=== PATIENT | female | born 1985 | race Caucasian/White ===

== ENCOUNTER 2016-07-16 06:25 | Inpatient (IN) ==
[2016-07-16] MEDS ORDERED: CITRIC ACID/SODIUM CITRATE 30 ML UDCUP PO ONE (06:33)
[2016-07-16] MEDS ORDERED: CLINDAMYCIN INJ 900 MG in PREMIX 1 EACH IV ONE (06:33)
[2016-07-16] MEDS ORDERED: FAMOTIDINE 20 MG/2 ML VIAL IV ONE (06:33)
[2016-07-16 07:00] LABS: Basophils # 0.1 10*3/uL (0.0-0.2); Basophils % 0.7 % (0.0-0.8); Eosinophils # 0.2 10*3/uL (0.0-0.87); Eosinophils % 2.6 % (0.00-10.9); Hematocrit 37.8 VOL% (35.7-47.0); Hemoglobin 12.3 GM/DL (12.0-16.0); Immature Granulocytes % 1.3 %; Immature Granulocytes Absolute 0.11 #; Lymphocytes # 1.9 10*3/uL (1.4-4.0); Lymphocytes % 22.1 % (21.3-54.2); Mean Corpuscular HGB Conc 32.5 GM/DL (32-36); Mean Corpuscular Hemoglobin 29 PG (27-34); Mean Corpuscular Volume 88.1 FL (87-102); Mean Platelet Volume 13.1 FL (9.6-12.0); Monocytes # 0.6 10*3/uL (0.11-0.8); Monocytes % 6.8 % (1.7-12.7); Neutrophils # 5.7 10*3/uL (1.4-7.4); Neutrophils % 66.5 % (38.7-73.9); Platelet Count 129 10*3/uL (130-400); Red Blood Count 4.29 10*6/uL (3.8-5.5); Red Cell Distribution Width 15.1 % (9.3-17.3); White Blood Count 8.6 10*3/uL (4.5-13.71)
[2016-07-16] MEDS: LACTATED RINGERS 1,000 ML IV SCH ×2 (07:00→08:01)
[2016-07-16] MEDS ORDERED: OXYTOCIN/LR 20 UNIT/1,000 ML BAG IV ONE ×3 (07:05→10:04)
[2016-07-16] MEDS ORDERED: INFLUENZA VIRUS VACCINE 0.5 ML SYRINGE IM ONE (07:08)
[2016-07-16 07:34] LABS: Albumin 2.8 G/DL (3.4-5.0); Bilirubin,Total 0.4 MG/DL (0.2-1.0); Calcium 8.7 MG/DL (8.5-10.1); Osmolality,Calculated 280.1 MOS/KG (273-304); Potassium 4.1 MMOL/L (3.5-5.1)
[2016-07-16] MEDS ORDERED: ONDANSETRON 4 MG/2 ML VIAL ONE (07:40)
[2016-07-16] MEDS ORDERED: PHENYLEPHRINE 1 MG/10 ML SYRINGE IV ONE (07:40)
[2016-07-16] MEDS ORDERED: hydrOXYzine HCL 25 MG/1 ML VIAL IM PRN (07:53)
[2016-07-16] MEDS ORDERED: diphenhydrAMINE 50 MG/1 ML VIAL IV PRN (07:53)
[2016-07-16] MEDS ORDERED: ONDANSETRON 4 MG/2 ML VIAL IV PRN (07:53)
[2016-07-16] MEDS ORDERED: HYDROmorphone 2 MG/1 ML VIAL IV PRN (07:53)
[2016-07-16] MEDS ORDERED: NALOXONE 0.4 MG/ML VIAL IV PRN (07:58)
[2016-07-16] MEDS ORDERED: SODIUM CHLORIDE 0.9% 1,000 ML IV SCH (08:00)
[2016-07-16] MEDS ORDERED: LACTATED RINGERS 1,000 ML IV SCH (08:00)
[2016-07-16] MEDS ORDERED: fentaNYL 100 MCG/2 ML VIAL ONE (08:50)
[2016-07-16] MEDS ORDERED: MORPHINE 10 MG/10 ML VIAL ONE (08:50)
--- NOTE | 2016-07-16 08:54 | Operative Note ---
Pre-op diagnosis: IUP at 39 weeks, for elective repeat Post-op diagnosis: same Procedure: Repeat LTCS Findings: infant male, apgars 9 and 9, weight 8 pounds 3 ounces, normal uterus tubes and ovaries Procedure: The procedure was as follows. The patient was consented risks benefits alternatives and complications were reviewed with the patient the patient was amenable to the procedure. The patient was thus taken back to the operating room where spinal anesthesia was found be adequate and the patient was prepped and draped in the usual sterile fashion. A Pfannenstiel skin incision when was made with a prior scar was noted and carried out to the underlying fascia the fascia was incised in the midline and extended laterally with Whittington scissors. The superior aspect of the fascial incision was dissected off the rectus muscle the same was done with the inferior aspect of the fascial incision. The rectus muscle was divided in the midline and peritoneum identified and entered sharply with Metzenbaums is extended superiorly and inferiorly with good visualization of the bladder. The Jazlyn retractor was carefully introduced into the abdomen and the vesicouterine peritoneum identified and sharply with Metzenbaum scissors and extended laterally and the bladder flap was then created digitally. The lower uterine segment was incised with the scalpel and extended laterally the amniotomy was performed and noted to be clear fluid and the infant was delivered atraumatically cord was clamped and cut and the was handed off to the waiting nursery nurses. The placenta was removed manually. Uterus cleared of all clots and debris with a clean dry sponge and the lower uterine segment was repaired using 0 Vicryl in a running locked fashion with a second imbricating layer. The ovaries and tubes were palpated and the uterus was visualized and all was within normal limits. Hemostasis was assured and the uterine segment he irrigation was performed. The Jazlyn retractor was removed Interceed was placed over the lower uterine segment as well as Surgicel in the incision site to help with hemostasis. The peritoneum was reapproximated using 3-0 Vicryl in a running fashion and the muscle was reapproximated using 3-0 Vicryl and interrupted vertical mattress fashion. The fascia was reapproximated using 0 Vicryl in a running fashion starting either angle and tying in the middle. The subcutaneous fat was reapproximated using 3-0 Vicryl in a running fashion skin was reapproximated using 3-0 Monocryl. Sponge lap and instrument counts were correct 3 patient was sent to the recovery room in stable condition. Anesthesia: spinal Surgeon / Physician: Noemí Carbajal Estimated blood loss: other (500) Urine output: 250 (clear) Specimens: none sent Condition: stable Results - Labs CBC & BMP: 07/16/16 06:50 07/16/16 06:50
[2016-07-16 09:02] LABS: Apearance,Urine Slightly Hazy (Clear); Bacteria,Urine Occasional /HPF (Few); Bilirubin,Urine Negative (Negative); Blood, Urine Negative (Negative); Glucose,Urine (UA) Negative (Negative); Ketones,Urine Negative (Negative); Mucus,Urine Occasional /LPF (Occasional); Nitrite,Urine Negative (Negative); Protein,Urine Negative; RBC,Urine 2 /HPF (0-4); Squamous Epithelial Cell,Urine Occasional /HPF (0-10); Urine Color Yellow (Yellow); Urine Specific Gravity 1.021 (1.001-1.035); Urine Urobilinogen < 2.0 EU/DL (0.2-1.0); WBC,Urine 4 /HPF (0-6)
--- NOTE | 2016-07-16 09:04 | Event Note ---
Infant will have to go [facility] in [place] for surgery . The pt would like to go to [place] to be with her son. I spoke to Dr. Herson Nails and he accepted her . Once pt is stable will will arrange for transfer.
[2016-07-16] MEDS ORDERED: MAGNESIUM HYDROXIDE SUSP 30 ML UDCUP PO PRN (09:32)
[2016-07-16] MEDS ORDERED: SIMETHICONE CHEW 80 MG TABLET PO PRN (09:32)
[2016-07-16] MEDS ORDERED: IBUPROFEN 800 MG TABLET PO PRN (09:32)
[2016-07-16] MEDS ORDERED: ACETAMINOPHEN 325 MG TABLET PO PRN (09:32)
[2016-07-16] MEDS ORDERED: RHO(D) IMMUNE GLOBULIN 300 MCG SYRINGE IM ONE (09:32)
--- NOTE | 2016-07-16 09:44 | Discharge Summary ---
Hospital Course - Hospital Course Hospital Course: The pt was admitted for a scheduled repeat at 39 weeks. The repeat c- section was uncomplicated but shortly after delivery the was examined by the Site Supervising Technical Operator who determined the baby will need surgery and will need to be transferred to [facility] in [place] for further evaluation and treatment. Once the pt is noted to be stabilized she will be will be transferred to [facility] for routine postop/ care so she can be closer to her baby. Diagnosis - Discharge Diagnosis (1) Status post repeat low transverse section Status: Acute Discharge Plan - Discharge Data Disposition: Disch/Xfer-Ipshort Term Hos - Discharge Medications No Action Fluoxetine HCl [Prozac] 40 mg PO DAILY - Follow Up or Referral - Forms/Instructions Discharge Results Labs on day of discharge: Labs from last 24 hours 07/16/16 07/16/16 07/16/16 07:50 06:50 06:50 WBC RBC Hgb Hct MCV MCH MCHC RDW Plt Count MPV Neut % (Auto) Lymph % (Auto) Wharton % (Auto) Eos % (Auto) Baso % (Auto) Neut # (Auto) Lymph # (Auto) Wharton # (Auto) Eos # (Auto) Baso # (Auto) Immature Gran % Nucleated RBC % Immature Gran # Nucleated RBCs # Sodium 142 Potassium 4.1 Chloride 109 H Carbon Dioxide 21 Anion Gap 16.1 H BUN 10 Creatinine 0.60 GFR Calculation 136 BUN/Creatinine Ratio 16.00 Glucose 79 Calculated Osmolality 280.1 Calcium 8.7 Total Bilirubin 0.40 AST 19 ALT 18 Alkaline Phosphatase 168 H Total Protein 6.0 L Albumin 2.8 L Globulin 3.2 Albumin/Globulin Ratio 0.8 L Urine Color Yellow Urine Appearance Slightly hazy Urine pH 6.0 Ur Specific [place] 1.021 Urine Protein Negative Urine Glucose (UA) Negative Urine Ketones Negative Urine Blood Negative Urine Nitrate Negative Urine Bilirubin Negative Urine Urobilinogen < 2.0 H Urine Leukocytes Trace Urine RBC 2 Urine WBC 4 Ur Squamous Epith Cells Occasional Urine Bacteria Occasional Urine Mucus Occasional Ur Culture Indicated? Not indicated Blood Type A NEGATIVE Antibody Screen Positive Antibody Identification Anti-D 07/16/16 06:50 WBC 8.6 RBC 4.29 Hgb 12.3 Hct 37.8 MCV 88.1 MCH 29 MCHC 32.5 RDW 15.1 Plt Count 129 L MPV 13.1 H Neut % (Auto) 66.5 Lymph % (Auto) 22.1 Wharton % (Auto) 6.8 Eos % (Auto) 2.6 Baso % (Auto) 0.7 Neut # (Auto) 5.7 Lymph # (Auto) 1.9 Wharton # (Auto) 0.6 Eos # (Auto) 0.2 Baso # (Auto) 0.1 Immature Gran % 1.3 Nucleated RBC % 0.0 Immature Gran # 0.11 Nucleated RBCs # 0.00 Sodium Potassium Chloride Carbon Dioxide Anion Gap BUN Creatinine GFR Calculation BUN/Creatinine Ratio Glucose Calculated Osmolality Calcium Total Bilirubin AST ALT Alkaline Phosphatase Total Protein Albumin Globulin Albumin/Globulin Ratio Urine Color Urine Appearance Urine pH Ur Specific [place] Urine Protein Urine Glucose (UA) Urine Ketones Urine Blood Urine Nitrate Urine Bilirubin Urine Urobilinogen Urine Leukocytes Urine RBC Urine WBC Ur Squamous Epith Cells Urine Bacteria Urine Mucus Ur Culture Indicated? Blood Type Antibody Screen Antibody Identification DS: Provider Date of admission: 07/16/16 06:25 Primary care physician: . No PCP Attending physician on admission: Noemí Herrera- Consults: 07/16/16 06:33 Consult to Anesthesiology [CONS] Routine Consulting Provider: Reason for Anesthesiology: Pre-op Clearance 07/16/16 09:23 Consult to Case Mgmt/Social Srvs [CONS] Routine Reason for Case Mgmt/Social Srvs: Other Consult Comment: being transferred to [facility], pt desires to transfer care with infant Discharging clinician: Noemí Herrera- Expected date of discharge: 07/16/16
--- NOTE | 2016-07-16 11:15 | Anesthesia ---
Anesthesia Post OP - Post Ansesthetic Evaluation Patient seen in post op: Yes Resp: within normal limits CV: within normal limits Mental: within normal limits Temp: within normal limits [id number]-[id number]-[id number]: within normal limits Nausea and Vomiting: within normal limits Pain: within normal limits
[2016-07-16 12:08] VITALS: BP 108/55
[2016-07-16] MEDS ORDERED: CLINDAMYCIN INJ 900 MG in PREMIX 1 EACH IV SCH (15:33)
[2016-07-16] MEDS ORDERED: DOCUSATE SODIUM 100 MG CAPSULE PO SCH (21:00)
[2016-07-17] MEDS ORDERED: MULTIVITAMIN (PRENATAL) TABLET PO SCH (09:00)
== END 2016-07-16 12:45 | disposition hospice, home (50) | DRG 766 ==
LOC: N.LD 06:25
PROVIDERS: ADMIT Obstetrics & Gynecology; ATTEND Obstetrics & Gynecology
PROC: LDCSECT (ICD-10-PCS; 2016-07-16 08:30)